=== PATIENT | male | born 1965 | race Caucasian/White ===

== ENCOUNTER 2023-06-01 06:55 | Emergency (ER) | payer OTHER, SELFPAY ==
[2023-06-01 07:00] VITALS: BP 184/100
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
[2023-06-01 08:37] VITALS: BP 161/89
[2023-06-01 08:38] VITALS: BMI 28.9
[2023-06-01 08:51] LABS: % Basophils 1.8 % (0-2); % Eosinophils 4.3 % (0-6); % Immature Granulocytes 0.3 % (0-0.5); % Lymphocytes 30.4 % (20.5-51.1); % Monocytes 12.2 % (1.7-9.3); Absolute Basophils 0.1 10^3/uL (0-0.2); Absolute Eosinophils 0.3 10^3/uL (0-0.7); Absolute Lymphocytes 2.2 10^3/uL (1.2-3.4); Absolute Monocytes 0.9 10^3/uL (0.1-0.6); Absolute Neutrophils 3.6 10^3/uL (1.4-6.5); Hematocrit 40.6 % (39.0-52.0); Hemoglobin 14.9 g/dL (13.0-18.0); Mean Corp Hgb Conc. 36.7 g/dL (33.0-37.0); Mean Corpuscular Hgb 32.7 pg (27.0-31.0); Mean Corpuscular Volume 89.2 fL (80.0-94.0); Mean Platelet Volume 9.9 fL (7.4-10.4); Nucleated Red Blood Cells % 0 % (-); Platelet Count 294 10^3/uL (130-400); Red Blood Cell Count 4.55 10^6/uL (4.70-6.10); Red Cell Dist. Width 13.7 % (11.5-14.5); White Blood Cell Count 7.1 10^3/uL (4.8-10.8)
[2023-06-01 09:00] VITALS: BP 157/91
[2023-06-01 09:03] LABS: ALT (SGPT) 22 U/L (0-50); AST (SGOT) 26 U/L (17-59); Albumin 4.1 g/dl (3.5-5.0); Alkaline Phosphatase 59 U/L (38-126); Blood Urea Nitrogen 14 mg/dl (9-20); Calcium 9.4 mg/dl (8.4-10.2); Carbon Dioxide 23 mmol/L (22-30); Chloride 110 mmol/L (98-107); Estimated Creatinine Clearance 105 ml/min; Glucose 122 mg/dl (70-99); Lipase 74 U/L (23-300); Potassium 4.8 mmol/L (3.5-5.1); Sodium 137 mmol/L (135-145); Total Bilirubin 0.7 mg/dl (0.2-1.3); Total Protein 6.8 g/dl (6.3-8.2); eGFR > 60.00
[2023-06-01 09:15] LABS: Troponin I < 0.012 ng/ml
[2023-06-01 10:00] VITALS: BP 160/90
[2023-06-01 11:00] VITALS: BP 161/87
[2023-06-01 12:00] VITALS: BP 173/79
[2023-06-01 12:17] LABS: Troponin I < 0.012 ng/ml
== END 2023-06-01 13:00 | disposition home or self-care (01) ==
LOC: EMR 06:55
PROVIDERS: Physician Assistant; EMERGENCY PHYSICIAN Emergency Medicine; FAMILY PHYSICIAN Family Medicine
DX: R07.9 Chest pain, unspecified (principal); F17.200 Nicotine dependence, unspecified, uncomplicated
CPT/HCPCS: 99285; 71046; 80053; 83690; 84484; 85025; 93005